=== PATIENT | male | born 1950 | race African-American/Black ===

== ENCOUNTER 2020-07-22 19:58 | Observation (INO) ==
[2020-07-22] MEDS ORDERED: diphenhydrAMINE CAP 25 MG CAPSULE PO PRN (22:47)
[2020-07-22] MEDS ORDERED: GLUCAGON 1 MG VIAL IM PRN (22:47)
[2020-07-22] MEDS ORDERED: DEXTROSE 50% 25 GM/50 ML VIAL IV PRN (22:47)
[2020-07-22] MEDS ORDERED: hydrALAZINE 20 MG/1 ML VIAL IV PRN (22:47)
[2020-07-22] MEDS ORDERED: ALUMINUM/MAGNES/SIMETH MAX STR 30 ML UDCUP PO PRN (22:47)
[2020-07-22] MEDS ORDERED: NICOTINE 21 MG/24 HR PATCH TRANSDERM PRN (22:47)
[2020-07-22] MEDS ORDERED: ACETAMINOPHEN 325 MG TABLET PO PRN (22:47)
[2020-07-22] MEDS ORDERED: guaiFENesin/DM ER 600-30 MG TABLET PO PRN (22:47)
[2020-07-22] MEDS ORDERED: ONDANSETRON 4 MG/2 ML VIAL IV PRN (22:47)
[2020-07-22] MEDS ORDERED: MORPHINE 4 MG/1 ML VIAL IV PRN (22:47)
[2020-07-23] LABS: Basophils % 0.2 % (0.0-0.8); Eosinophils # 0.1 10*3/uL (0.0-0.87); Eosinophils % 1.3 % (0.00-10.9); Hematocrit 38.3 VOL% (42.0-52.0); Hemoglobin 12.4 GM/DL (14.0-18.0); Immature Granulocytes % 0.2 %; Immature Granulocytes Absolute 0.02 #; Lymphocytes # 1.8 10*3/uL (1.4-4.0); Lymphocytes % 20.3 % (21.2-54.2); Mean Corpuscular HGB Conc 32.4 GM/DL (32-36); Mean Platelet Volume 10.7 FL (9.6-12.0); Monocytes % 9.1 % (1.7-12.7); Neutrophils % 68.9 % (38.7-73.9); Platelet Count 150 T/CUMM (130-400); Red Blood Count 3.42 MC/CUMM (3.8-5.5); Red Cell Distribution Width 11.5 % (9.3-17.3)
[2020-07-23 00:33] LABS: Albumin 3.6 G/DL (3.4-5.0); Bilirubin,Total 0.5 MG/DL (0.2-1.0); Calcium 8.8 MG/DL (8.5-10.1); Osmolality,Calculated 279.5 MOS/KG (273-304); Risk Ratio 2.23; Thyroid Stimulating Hormone 1.38 uIU/ml (0.358-3.74); Total Protein 7.4 G/DL (6.4-8.3); VLDL CHOLESTEROL 14.8 MG/DL
[2020-07-23] MEDS: ENOXAPARIN 80 MG/0.8 ML SYRINGE SUBCUT ONE ×3 (01:25→01:29)
[2020-07-23] MEDS ORDERED: ENOXAPARIN 80 MG/0.8 ML SYRINGE SUBCUT ONE (01:30)
[2020-07-23] MEDS ORDERED: SODIUM CHLORIDE 0.9% 1,000 ML IV SCH (03:00)
[2020-07-23 07:10] LABS: Troponin I < 0.015 NG/ML (0.00-0.045)
[2020-07-23 07:33] LABS: Folate 13.1 NG/ML (5.4-24.0)
[2020-07-23] MEDS ORDERED: ENOXAPARIN 40 MG/0.4 ML SYRINGE SUBCUT SCH (14:00)
[2020-07-23] MEDS ORDERED: ATORVASTATIN 40 MG TABLET PO SCH (21:00)
[2020-07-24] MEDS ORDERED: ASPIRIN CHEW 81 MG TABLET PO SCH (09:00)
[2020-07-24] MEDS ORDERED: CLOPIDOGREL 75 MG TABLET PO SCH (09:00)
[2020-07-24 11:43] VITALS: BP 176/86
== END 2020-07-24 14:34 | disposition home health service (06) ==
LOC: N.TELES → SUATTDRO 22:30
PROVIDERS: ADMIT Internal Medicine; ATTEND Internal Medicine

== ENCOUNTER 2022-06-19 10:30 | Observation (INO) ==
[~2022-06-19 10:30] MED LIST: ASPIRIN 325 MG TABLET PO ONE; DIAZEPAM 5 MG TABLET PO ONE; MAGNESIUM SULF RIDER 2 GM/50 ML PREMIX IV PRN; POTASSIUM CHLORIDE RIDER 10 MEQ/100 ML PREMIX IV PRN; diphenhydrAMINE CAP 50 MG CAPSULE PO ONE
[2022-06-19 11:02] VITALS: BP 156/82
[2022-06-19] MEDS ORDERED: DIAZEPAM 5 MG TABLET ONE (11:09)
[2022-06-19] MEDS ORDERED: diphenhydrAMINE CAP 50 MG CAPSULE ONE (11:10)
[2022-06-19] MEDS: SODIUM CHLORIDE 0.9% 1,000 ML IV SCH ×3 (12:00→22:00)
[2022-06-19] MEDS ORDERED: ASPIRIN CHEW 81 MG TABLET PO ONE ×2 (13:37→13:38)
[2022-06-19] MEDS ORDERED: HYDROmorphone 1 MG/1 ML SYRINGE ONE (13:38)
[2022-06-19] MEDS ORDERED: NITROGLYCERIN DRIP 50 MG/250 ML BOTTLE IV ONE (13:38)
[2022-06-19] MEDS ORDERED: VERAPAMIL 5 MG/2 ML VIAL ONE (13:38)
[2022-06-19] MEDS ORDERED: MIDAZOLAM 2 MG/2 ML VIAL ONE (13:38)
[2022-06-19] MEDS ORDERED: ENOXAPARIN 60 MG/0.6 ML SYRINGE ONE (14:14)
[2022-06-19] MEDS ORDERED: ENOXAPARIN 30 MG/0.3 ML SYRINGE ONE (14:35)
[2022-06-19] MEDS ORDERED: diphenhydrAMINE 50 MG/1 ML VIAL ONE (14:57)
[2022-06-19] MEDS ORDERED: NALOXONE 0.4 MG/ML VIAL ONE (15:48)
[2022-06-20] MEDS: SODIUM CHLORIDE 0.9% 1,000 ML IV SCH (03:13)
[2022-06-20] MEDS ORDERED: CLOPIDOGREL 75 MG TABLET PO SCH (09:00)
[2022-06-20] MEDS ORDERED: carvediloL 3.125 MG TABLET PO SCH (09:00)
[2022-06-20 12:54] LABS: Basophils % 0.3 % (0.0-0.8); Eosinophils # 0.1 10*3/uL (0.0-0.87); Eosinophils % 1.2 % (0.00-10.9); Hematocrit 33.8 VOL% (42.0-52.0); Hemoglobin 10.3 GM/DL (14.0-18.0); Immature Granulocytes % 0.5 %; Immature Granulocytes Absolute 0.05 #; Lymphocytes # 0.8 10*3/uL (1.4-4.0); Mean Corpuscular HGB Conc 30.5 GM/DL (32-36); Mean Corpuscular Volume 112.3 FL (87-102); Mean Platelet Volume 11.5 FL (9.6-12.0); Monocytes # 1.4 10*3/uL (0.11-0.8); Monocytes % 13.7 % (1.7-12.7); Neutrophils % 76.3 % (38.7-73.9); Platelet Count 107 T/CUMM (130-400); Red Blood Count 3.01 MC/CUMM (3.8-5.5); Red Cell Distribution Width 12.3 % (9.3-17.3); White Blood Count 10.4 T/CUMM (4-12)
[2022-06-20 13:06] LABS: Albumin 3.7 G/DL (3.4-5.0); Bilirubin,Total 0.4 MG/DL (0.20-1.00); Calcium 9.2 MG/DL (8.5-10.1); Osmolality,Calculated 280.5 MOS/KG (273-304); Potassium 4.1 MMOL/L (3.5-5.1); Total Protein 7.4 G/DL (6.4-8.2)
[2022-06-20] MEDS ORDERED: LATANOPROST 0.005% OPH SOLN 2.5 ML BOTTLE BOTH EYES SCH (21:00)
[2022-06-20] MEDS ORDERED: ROSUVASTATIN 20 MG TABLET PO SCH (21:00)
[2022-06-21] MEDS ORDERED: ASPIRIN EC 81 MG TABLET PO SCH (09:00)
== END 2022-06-20 14:45 | disposition home or self-care (01) ==
LOC: N.CL 10:30 → N.CC 10:30 → N.CL 10:36 → N.CC 16:23
PROVIDERS: ADMIT Internal Medicine Cardiovascular Disease; ATTEND Internal Medicine Cardiovascular Disease
PROC: CLCCHCL (ICD-10-PCS; 2022-06-19 14:45)